=== PATIENT | female | born 1955 | race Caucasian/White ===

== ENCOUNTER 2017-07-03 14:45 | Outpatient (RCR) | payer BC ==
[~2017-07-03 14:45] MED LIST: ALLEGRA30 MG; FISH OIL CONC1000 MG PO; FLAGYL500 MG PO; LEVAQUIN 750MG750 MG PO; LEVOTHROID0.125 MG PO; NORCO 325 MG-51 TAB PO; SENOKOT TABLET1 EA PO; SYNTHROID0.05 MG/TA PO; ZOFRAN 4MG T4 MG/TAB PO
== END 2017-07-24 | disposition home or self-care (01) ==
LOC: WSPT
DX: M25.572 Pain in left ankle and joints of left foot (principal)
CPT/HCPCS: G0283-GP

== ENCOUNTER → 2018-04-27 | Outpatient (CLI) | payer BC | LOC: MC.RAD 11:00 | DX: Z12.31 Encounter for screening mammogram for malignant neoplasm of breast (principal) ==

== ENCOUNTER → 2020-09-29 | Outpatient (CLI) | payer MEDICARE, OTHER | LOC: MC.RAD 08-12 10:45 | DX: Z12.31 Encounter for screening mammogram for malignant neoplasm of breast (principal) ==

== ENCOUNTER → 2024-04-29 | Outpatient (CLI) | payer MEDICARE, OTHER ==
[~2024-04-29] MED LIST changes: +AMOXICILLIN 8751 TAB PO
== END ==
LOC: MC.RAD 09:25
DX: Z12.31 Encounter for screening mammogram for malignant neoplasm of breast (principal)

== ENCOUNTER → 2024-07-25 | Outpatient (CLI) | payer MEDICARE, OTHER | LOC: COL.RAD 13:18 | DX: M51.16 Intervertebral disc disorders with radiculopathy, lumbar region (principal); M47.26 Other spondylosis with radiculopathy, lumbar region; M48.061 Spinal stenosis, lumbar region without neurogenic claudication ==